=== PATIENT | male | born 1985 | race Caucasian/White ===

== ENCOUNTER 2017-06-28 11:48 | Emergency (ER) | payer SELFPAY ==
[2017-06-28 12:06] VITALS: BP 152/95
--- NOTE | 2017-06-28 13:34 | EDM.PDOCBH ---
ED HPI GENERAL MEDICAL PROBLEM - General Chief Complaint: Behavioral/Psych Stated Complaint: Medical evaluation for depression Time Seen by Provider: 06/28/17 12:45 Source of Information: Reports: Patient, Family, RN Notes Reviewed History Limitations: Reports: No Limitations - History of Present Illness INITIAL COMMENTS - FREE TEXT/NARRATIVE: 31 year old male is brought to the ED by law enforcement after a wellness call by the patient's Mom. The patient says he's not sure why he's here. He says he didn't witness the phone call. He denies suicidal or homicidal ideation. He denies substance abuse. He answers yes and no questions but otherwise does not elaborate. He says he's eating. He has a job but hasn't worked for a few weeks. I spoke to the officer who brought him in. He felt the patient appears paranoid because he would look around a lot and seemed uneasy. He made no alarming comments to the officer. The patient is not under arrest. I called and spoke to the patient's Mom since she was the one requesting he be medically evaluated. The patient's Mom reports that Lionel has been living with them for approximately 3 months. Mom (Cari) feels that he is severely depressed. She reports that Lionel does not leave the basement. He sleeps throughout the day and is awake at night. They said that he eats at night. They only know this because they find empty containers of food. Cari has end stage COPD and is unable to go downstairs and check on Lionel because she is on oxygen and does not tolerate going up and down stairs. She says that Lionel sleeps in a dark corner of the basement. She says he is unmotivated and disinterested. He had a job but hasn't worked since April. She says he's turned his cell phone off. She denies noticing any paranoia, hallucinations, or psychotic behavior. He has no history of mental health disorders. 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 Cari states "he hasn't been the same since. He never snapped back." Cari confidentally reports that Lionel is not using drugs or alcohol. He is on no medications. He is going through medical bankruptcy. Mom says he is losing weight and won't change his clothes. He's grown a long, unkept jaime which is abnormal for him. Mom denies any concerns of suicidal or homicidal ideation. Mom feels the patient needs to be admitted but she does not want him to go to the [facility]. - Related Data Allergies Allergy/AdvReac Type Severity Reaction Status Date / Time No Known Allergies Allergy Verified 06/28/17 12:03 Home Meds: Home Meds . [No Known Home Meds] 06/28/17 [History] Past Medical History - Past Health History Medical/Surgical History: Denies Medical/Surgical History Social & Family History - Tobacco Use Smoking Status *Q: Unknown Ever Smoked - Recreational Drug Use Recreational Drug Use: Yes Drug Use in Last 12 Months: No ED ROS GENERAL - Review of Systems Review Of Systems: ROS reveals no pertinent complaints other than HPI. (Patient does not offer any addtional information.) ED EXAM, BEHAVIORAL HEALTH - Physical Exam Exam: See Below Exam Limited By: Other (Withdrawn) General Appearance: Alert, No Apparent Distress, Thin Eye Exam: Bilateral Eye: EOMI, PERRL Respiratory/Chest: No Respiratory Distress, Lungs Clear, Normal Breath Sounds, No Accessory Muscle Use, Chest Non-Tender Cardiovascular: Normal Peripheral Pulses, Regular Rate, Rhythm, No Murmur GI/Abdominal: Normal Bowel Sounds, Soft, Non-Tender Neurological: Alert, Normal Gait, No Motor/Sensory Deficits, Oriented x 3, Other (Cerebellar testing intact ) Psychiatric: Alert, Flat Affect, Withdrawn, Other (Patient is calm and cooperative but appears withdrawn. He answers questions appropriately but with short yes/no responses. He denies suicidal or homicidal ideation. He denies drug use. He doesn't know why he's here. He doesn't feel his behavior is a problem.). No: Homicidal Thoughts, Phobic, Suicidal Plan, Suicidal Thoughts, Auditory Hallucinations, Visual Hallucinations, Grandiose Thoughts, Paranoid Thoughts, Threatening Behavior COURSE, BEHAVIORAL HEALTH COMP - Course Vital Signs: Last Vital Signs Temp 98.4 F 06/28/17 12:03 Pulse 118 H 06/28/17 12:03 Resp 16 06/28/17 12:03 BP 152/95 H 06/28/17 12:03 Pulse Ox 99 06/28/17 12:03 Orders, Labs, Meds: Laboratory Tests 06/28/17 06/28/17 06/28/17 Range/Units 12:55 12:55 13:10 WBC 5.76 (4.23-9.07) K/mm3 RBC 5.29 (4.63-6.08) M/mm3 Hgb 16.6 (13.7-17.5) gm/L Hct 46.8 (40.1-51.0) % MCV 88.5 (79.0-92.2) fl MCH 31.4 (25.7-32.2) pg MCHC 35.5 (32.2-35.5) g/dl RDW Std Deviation 38.3 (35.1-43.9) fL Plt Count 300 (163-337) K/mm3 MPV 10.8 (9.4-12.3) fl Neut % (Auto) 72.3 H (34.0-67.9) % Lymph % (Auto) 20.7 L (21.8-53.1) % [place] % (Auto) 5.6 (5.3-12.2) % Eos % (Auto) 0.9 (0.8-7.0) Baso % (Auto) 0.3 (0.1-1.2) % Neut # (Auto) 4.17 (1.78-5.38) K/mm3 Lymph # (Auto) 1.19 L (1.32-3.57) K/mm3 [place] # (Auto) 0.32 (0.30-0.82) K/mm3 Eos # (Auto) 0.05 (0.04-0.54) K/mm3 Baso # (Auto) 0.02 (0.01-0.08) K/mm3 Sodium 142 (136-145) mEq/L Potassium 4.2 (3.5-5.1) mEq/L Chloride 102 (98-107) mEq/L Carbon Dioxide 28 (21-32) mEq/L Anion Gap 16.2 H (5-15) BUN 15 (7-18) mg/dL Creatinine 1.4 H (0.7-1.3) mg/dL Est Cr Clr Drug Dosing 78.21 mL/min Estimated GFR (MDRD) 59 (>60) mL/min BUN/Creatinine Ratio 10.7 L (14-18) Glucose 99 (74-106) mg/dL Calcium 10.0 (8.5-10.1) mg/dL Total Bilirubin 2.2 H (0.2-1.0) mg/dL AST 33 (15-37) U/L ALT 19 (16-63) U/L Alkaline Phosphatase 54 (46-116) U/L Total Protein 8.0 (6.4-8.2) g/dl Albumin 4.9 (3.4-5.0) g/dl Globulin 3.1 gm/dL Albumin/Globulin Ratio 1.6 (1-2) TSH 3rd Generation 1.474 (0.358-3.74) uIU/mL Urine Color (Yellow) Urine Appearance (Clear) Urine pH (5.0-8.0) Ur Specific [place] (1.005-1.030) Urine Protein (Negative) Urine Glucose (UA) (Negative) Urine Ketones (Negative) Urine Occult Blood (Negative) Urine Nitrite (Negative) Urine Bilirubin (Negative) Urine Urobilinogen (0.2-1.0) Ur Leukocyte Esterase (Negative) Urine RBC (0-5) /hpf Urine WBC (0-5) /hpf Ur Epithelial Cells (0-5) /hpf Urine Bacteria (FEW) /hpf Urine Mucus (FEW) /hpf Urine Opiates Screen Negative (NEGATIVE) Ur Buprenorphine Scrn Negative (NEGATIVE) Ur Oxycodone Screen Negative (NEGATIVE) Urine Methadone Screen Negative (NEGATIVE) Ur Propoxyphene Screen Negative (NEGATIVE) Ur Barbiturates Screen Negative (NEGATIVE) Ur Tricyclics Screen Negative (NEGATIVE) Ur Phencyclidine Scrn Negative (NEGATIVE) Ur Amphetamine Screen Negative (NEGATIVE) U Methamphetamines Scrn Negative (NEGATIVE) U Benzodiazepines Scrn Negative (NEGATIVE) U Cocaine Metab Screen Negative (NEGATIVE) U Marijuana (THC) Screen Negative (NEGATIVE) Ethyl Alcohol 0.00 (0.00) gm% 06/28/17 Range/Units 13:10 WBC (4.23-9.07) K/mm3 RBC (4.63-6.08) M/mm3 Hgb (13.7-17.5) gm/L Hct (40.1-51.0) % MCV (79.0-92.2) fl MCH (25.7-32.2) pg MCHC (32.2-35.5) g/dl RDW Std Deviation (35.1-43.9) fL Plt Count (163-337) K/mm3 MPV (9.4-12.3) fl Neut % (Auto) (34.0-67.9) % Lymph % (Auto) (21.8-53.1) % [place] % (Auto) (5.3-12.2) % Eos % (Auto) (0.8-7.0) Baso % (Auto) (0.1-1.2) % Neut # (Auto) (1.78-5.38) K/mm3 Lymph # (Auto) (1.32-3.57) K/mm3 [place] # (Auto) (0.30-0.82) K/mm3 Eos # (Auto) (0.04-0.54) K/mm3 Baso # (Auto) (0.01-0.08) K/mm3 Sodium (136-145) mEq/L Potassium (3.5-5.1) mEq/L Chloride (98-107) mEq/L Carbon Dioxide (21-32) mEq/L Anion Gap (5-15) BUN (7-18) mg/dL Creatinine (0.7-1.3) mg/dL Est Cr Clr Drug Dosing mL/min Estimated GFR (MDRD) (>60) mL/min BUN/Creatinine Ratio (14-18) Glucose (74-106) mg/dL Calcium (8.5-10.1) mg/dL Total Bilirubin (0.2-1.0) mg/dL AST (15-37) U/L ALT (16-63) U/L Alkaline Phosphatase (46-116) U/L Total Protein (6.4-8.2) g/dl Albumin (3.4-5.0) g/dl Globulin gm/dL Albumin/Globulin Ratio (1-2) TSH 3rd Generation (0.358-3.74) uIU/mL Urine Color Yellow (Yellow) Urine Appearance Clear (Clear) Urine pH 5.5 (5.0-8.0) Ur Specific [place] > or = 1.030 (1.005-1.030) Urine Protein Negative (Negative) Urine Glucose (UA) Negative (Negative) Urine Ketones 1+ H (Negative) Urine Occult Blood Negative (Negative) Urine Nitrite Negative (Negative) Urine Bilirubin 1+ H (Negative) Urine Urobilinogen 4.0 H (0.2-1.0) Ur Leukocyte Esterase Negative (Negative) Urine RBC 0-5 (0-5) /hpf Urine WBC 0-5 (0-5) /hpf Ur Epithelial Cells Not seen (0-5) /hpf Urine Bacteria Not seen (FEW) /hpf Urine Mucus Many H (FEW) /hpf Urine Opiates Screen (NEGATIVE) Ur Buprenorphine Scrn (NEGATIVE) Ur Oxycodone Screen (NEGATIVE) Urine Methadone Screen (NEGATIVE) Ur Propoxyphene Screen (NEGATIVE) Ur Barbiturates Screen (NEGATIVE) Ur Tricyclics Screen (NEGATIVE) Ur Phencyclidine Scrn (NEGATIVE) Ur Amphetamine Screen (NEGATIVE) U Methamphetamines Scrn (NEGATIVE) U Benzodiazepines Scrn (NEGATIVE) U Cocaine Metab Screen (NEGATIVE) U Marijuana (THC) Screen (NEGATIVE) Ethyl Alcohol (0.00) gm% Re-Assessment/Re-Exam: CBC is normal. CMP reveals normal sodium and potassium. Anion gap is mildly elevated with a normal bicarb. Creatinine is 1.4, BUN 15. Bilirubin is mildly elevated at 2.2 with normal LFTs. UA is negative for infection. UDS and ETOH is negative. The patient is calm and cooperative. He is not showing any outward signs of psychosis but I suspect that he has underlying, undiagnosed mental illness and feel he would benefit from inpatient admission. I spoke to Dr. Segura, Psychiatrist [employer] retailer sales consultant at [facility], regarding this patient. Since the patient is not a threat to himself or others, she recommends that he come voluntarily. If the patient refuses, she recommends that the family to go the states program support specialist 's office and file committal paperwork if needed. I spoke to the patient and he adamantly refuses transfer and admission to [facility]. He does not feel he needs inpatient treatment. He continues to not understand why he is here or what his mother's concerns are. Lionel did give me permission to speak to his Mom about his care. I attempted to phone the patient's mother several times but was unable to reach her. She did call back later and I was able to speak with her regarding the Psychiatry recommendations. I strongly encouraged them to file paperwork in order to get Lionel the help he needs. She agreed and said she will talk to her . I again feel the patient has underlying mental illness and feel he would benefit from inpatient admission, however he does not meet criteria for involuntary committal at this point. I encouraged Lionel to return if he has any thoughts of harming himself or others, or if he were to change his mind and agree to go to voluntarily to [facility]. They were given contact info for [facility]. Departure - Departure Time of Disposition: 14:20 Disposition: Home, Self-Care 01 Condition: Fair Clinical Impression: Depression Qualifiers: Depression Type: unspecified Qualified Code(s): F32.9 - Major depressive disorder, single episode, unspecified - Discharge Information Referrals: PCP,None [Primary Care Provider] - Forms: ED Department Discharge Additional Instructions: Return to ER if you develop any thoughts of hurting yourself or others I recommend you follow-up with your primary care provider [facility] due to depressive symptoms If you do not have a primary care provider, you can establish care with one of our family practice providers. We have same and next day appointments available. Call [phone] schedule. You can also follow-up with [facility] here in town. Call [phone] to schedule with them.
== END 2017-06-28 14:35 | disposition home or self-care (01) ==
LOC: JD.ED 11:48
DX: F32.9 Major depressive disorder, single episode, unspecified (principal)
CPT/HCPCS: 36415; 80053; 80306; 81001; 84443; 85025; 99283; G0480

== ENCOUNTER 2021-01-14 13:46 | Emergency (ER) | payer MEDICAID ==
[2021-01-14 14:02] VITALS: BP 137/75; PULSE 79
--- NOTE | 2021-01-14 14:48 | EDM.PDOCBH ---
ED HPI GENERAL MEDICAL PROBLEM - General Chief Complaint: Behavioral/Psych Stated Complaint: MENTAL HEALTH COMMITTAL Time Seen by Provider: 01/14/21 14:00 Source of Information: Reports: Patient, Police, RN Notes Reviewed, Other (Committal paperwork) History Limitations: Reports: Uncooperative - History of Present Illness INITIAL COMMENTS - FREE TEXT/NARRATIVE: Patient is a 35-year-old male brought into the emergency department by [facility] for medical clearance and placement with a court ordered committal already in place. Committal paperwork details the patient has a history of drug and alcohol abuse which has created mental illness in him. He has been banging his head on the wall and putting holes in the sheet rock as well as standing on unstable chairs. Patient is unable to offer much in the form of history. He says that he has hit his head on the wall at a couple times ", but does not know why he does it. He is denies any homicidal suicidal idea tion. Denies any drug or alcohol abuse. He does not think that he has ever been formally diagnosed with a psychiatric disorder. He denies any previous psychiatric hospitalizations. - Related Data Allergies Allergy/AdvReac Type Severity Reaction Status Date / Time No Known Allergies Allergy Verified 01/14/21 14:02 Home Meds: Home Meds . [No Known Home Meds] 06/28/17 [History] Past Medical History - Past Health History Medical/Surgical History: Denies Medical/Surgical History - Infectious Disease History Infectious Disease History: Reports: Chicken Pox Social & Family History - Family History Family Medical History: No Pertinent Family History - Tobacco Use Tobacco Use Status *Q: Never Tobacco User - Caffeine Use Caffeine Use: Reports: None - Recreational Drug Use Recreational Drug Use: Yes ED ROS GENERAL - Review of Systems Review Of Systems: See Below Constitutional: Reports: No Symptoms HEENT: Reports: No Symptoms Respiratory: Reports: No Symptoms Cardiovascular: Reports: No Symptoms Endocrine: Reports: No Symptoms GI/Abdominal: Reports: No Symptoms : Reports: No Symptoms Musculoskeletal: Reports: No Symptoms Skin: Reports: No Symptoms Neurological: Reports: No Symptoms Psychiatric: Reports: Other (self harm ) Hematologic/Lymphatic: Reports: No Symptoms Immunologic: Reports: No Symptoms ED EXAM, BEHAVIORAL HEALTH - Physical Exam Exam: See Below Exam Limited By: No Limitations General Appearance: Alert, WD/WN, No Apparent Distress Head: Atraumatic, Normocephalic Respiratory/Chest: No Respiratory Distress, Lungs Clear, Normal Breath Sounds, No Accessory Muscle Use, Chest Non-Tender Cardiovascular: Normal Peripheral Pulses, Regular Rate, Rhythm, No Edema, No Gallop, No JVD, No Murmur, No Rub GI/Abdominal: Normal Bowel Sounds, Soft, Non-Tender, No Organomegaly, No Distention, No Abnormal Bruit, No Mass Neurological: Alert, CN II-XII Intact, Normal Gait, Normal Reflexes, No Motor/Sensory Deficits, Oriented x 3 Psychiatric: Alert, Flat Affect, Inattentive, Poor Eye Contact, Other (poor communication, inappropriate responses to questions. Inappropriate laughing.) Skin Exam: Warm, Dry, Intact, Normal color, No rash COURSE, BEHAVIORAL HEALTH COMP - Course Vital Signs: Last Vital Signs Temp 98.1 F 01/14/21 13:59 Pulse 79 01/14/21 13:59 Resp 16 01/14/21 13:59 BP 137/75 01/14/21 13:59 Pulse Ox 100 01/14/21 13:59 Orders, Labs, Meds: Laboratory Tests 01/14/21 01/14/21 01/14/21 Range/Units 14:30 14:30 14:30 WBC 7.65 (4.23-9.07) K/mm3 RBC 4.90 (4.63-6.08) M/mm3 Hgb 15.4 (13.7-17.5) gm/dl Hct 46.4 (40.1-51.0) % MCV 94.7 H D (79.0-92.2) fl MCH 31.4 (25.7-32.2) pg MCHC 33.2 (32.2-35.5) g/dl RDW Std Deviation 43.3 (35.1-43.9) fL Plt Count 261 (163-337) K/mm3 MPV 11.3 (9.4-12.3) fl Neutrophils % (Manual) 68 H (40-60) % Band Neutrophils % 0 (0-10) % Lymphocytes % (Manual) 26 (20-40) % Atypical Lymphs % 0 % Monocytes % (Manual) 5 (2-10) % Eosinophils % (Manual) 1 (0.8-7.0) % Basophils % (Manual) 0 L (0.2-1.2) Platelet Estimate Adequate RBC Morph Comment Normal Sodium 145 (136-145) mEq/L Potassium 3.7 (3.5-5.1) mEq/L Chloride 105 (98-107) mEq/L Carbon Dioxide 29 (21-32) mEq/L Anion Gap 14.7 (5-15) BUN 8 (7-18) mg/dL Creatinine 1.1 (0.7-1.3) mg/dL Est Cr Clr Drug Dosing 92.56 mL/min Estimated GFR (MDRD) > 60 (>60) mL/min BUN/Creatinine Ratio 7.3 L (14-18) Glucose 89 (74-106) mg/dL Calcium 9.4 (8.5-10.1) mg/dL Total Bilirubin 1.6 H (0.2-1.0) mg/dL AST 17 (15-37) U/L ALT 21 (16-63) U/L Alkaline Phosphatase 78 (46-116) U/L Total Protein 8.1 (6.4-8.2) g/dl Albumin 4.8 (3.4-5.0) g/dl Globulin 3.3 gm/dL Albumin/Globulin Ratio 1.5 (1-2) TSH 3rd Generation 3.117 (0.358-3.74) uIU/mL Salicylates < 0.2 L (2.8-20) mg/dL Urine Opiates Screen (ZVGXGP=227) Ur Buprenorphine Scrn (CUTOFF=10) Ur Oxycodone Screen (VCY7XB=952) Urine Methadone Screen (ZQB2OA=520) Ur Propoxyphene Screen (UVXPXI=884) Acetaminophen 0 L (10-30) ug/mL Ur Barbiturates Screen (NVLWZI=676) Ur Tricyclics Screen (XKACJH=936) Ur Phencyclidine Scrn (CUTOFF=25) Ur Amphetamine Screen (UNRFRO=180) U Methamphetamines Scrn (LWPZKC=064) U Benzodiazepines Scrn (WGGJAM=602) U Cocaine Metab Screen (LFJWQK=659) U Marijuana (THC) Screen (CUTOFF=50) Ethyl Alcohol 0.00 (0.00) gm% RPR (NONREACTIVE) HIV-1 Ab Rapid Screen (NEGATIVE) SARS-CoV-2 RNA (COOPER) (NEGATIVE) 01/14/21 01/14/21 01/14/21 Range/Units 14:30 14:30 14:48 WBC (4.23-9.07) K/mm3 RBC (4.63-6.08) M/mm3 Hgb (13.7-17.5) gm/dl Hct (40.1-51.0) % MCV (79.0-92.2) fl MCH (25.7-32.2) pg MCHC (32.2-35.5) g/dl RDW Std Deviation (35.1-43.9) fL Plt Count (163-337) K/mm3 MPV (9.4-12.3) fl Neutrophils % (Manual) (40-60) % Band Neutrophils % (0-10) % Lymphocytes % (Manual) (20-40) % Atypical Lymphs % % Monocytes % (Manual) (2-10) % Eosinophils % (Manual) (0.8-7.0) % Basophils % (Manual) (0.2-1.2) Platelet Estimate RBC Morph Comment Sodium (136-145) mEq/L Potassium (3.5-5.1) mEq/L Chloride (98-107) mEq/L Carbon Dioxide (21-32) mEq/L Anion Gap (5-15) BUN (7-18) mg/dL Creatinine (0.7-1.3) mg/dL Est Cr Clr Drug Dosing mL/min Estimated GFR (MDRD) (>60) mL/min BUN/Creatinine Ratio (14-18) Glucose (74-106) mg/dL Calcium (8.5-10.1) mg/dL Total Bilirubin (0.2-1.0) mg/dL AST (15-37) U/L ALT (16-63) U/L Alkaline Phosphatase (46-116) U/L Total Protein (6.4-8.2) g/dl Albumin (3.4-5.0) g/dl Globulin gm/dL Albumin/Globulin Ratio (1-2) TSH 3rd Generation (0.358-3.74) uIU/mL Salicylates (2.8-20) mg/dL Urine Opiates Screen Negative (WQEYML=498) Ur Buprenorphine Scrn Negative (CUTOFF=10) Ur Oxycodone Screen Negative (RIA5SQ=803) Urine Methadone Screen Negative (YWW1UF=692) Ur Propoxyphene Screen Negative (DPASXI=312) Acetaminophen (10-30) ug/mL Ur Barbiturates Screen Negative (EIYAWZ=667) Ur Tricyclics Screen Negative (URNPTE=858) Ur Phencyclidine Scrn Negative (CUTOFF=25) Ur Amphetamine Screen Negative (YSRVUR=979) U Methamphetamines Scrn Negative (IGWDRW=994) U Benzodiazepines Scrn Negative (IBNTRF=752) U Cocaine Metab Screen Negative (NGOYWC=223) U Marijuana (THC) Screen Negative (CUTOFF=50) Ethyl Alcohol (0.00) gm% RPR Non-reactive (NONREACTIVE) HIV-1 Ab Rapid Screen Negative (NEGATIVE) SARS-CoV-2 RNA (COOPER) (NEGATIVE) 01/14/21 Range/Units 15:30 WBC (4.23-9.07) K/mm3 RBC (4.63-6.08) M/mm3 Hgb (13.7-17.5) gm/dl Hct (40.1-51.0) % MCV (79.0-92.2) fl MCH (25.7-32.2) pg MCHC (32.2-35.5) g/dl RDW Std Deviation (35.1-43.9) fL Plt Count (163-337) K/mm3 MPV (9.4-12.3) fl Neutrophils % (Manual) (40-60) % Band Neutrophils % (0-10) % Lymphocytes % (Manual) (20-40) % Atypical Lymphs % % Monocytes % (Manual) (2-10) % Eosinophils % (Manual) (0.8-7.0) % Basophils % (Manual) (0.2-1.2) Platelet Estimate RBC Morph Comment Sodium (136-145) mEq/L Potassium (3.5-5.1) mEq/L Chloride (98-107) mEq/L Carbon Dioxide (21-32) mEq/L Anion Gap (5-15) BUN (7-18) mg/dL Creatinine (0.7-1.3) mg/dL Est Cr Clr Drug Dosing mL/min Estimated GFR (MDRD) (>60) mL/min BUN/Creatinine Ratio (14-18) Glucose (74-106) mg/dL Calcium (8.5-10.1) mg/dL Total Bilirubin (0.2-1.0) mg/dL AST (15-37) U/L ALT (16-63) U/L Alkaline Phosphatase (46-116) U/L Total Protein (6.4-8.2) g/dl Albumin (3.4-5.0) g/dl Globulin gm/dL Albumin/Globulin Ratio (1-2) TSH 3rd Generation (0.358-3.74) uIU/mL Salicylates (2.8-20) mg/dL Urine Opiates Screen (KLKPMO=852) Ur Buprenorphine Scrn (CUTOFF=10) Ur Oxycodone Screen (UPA0BR=097) Urine Methadone Screen (DGA0KB=400) Ur Propoxyphene Screen (TXNNYV=666) Acetaminophen (10-30) ug/mL Ur Barbiturates Screen (PXRAYZ=391) Ur Tricyclics Screen (FQPHDK=585) Ur Phencyclidine Scrn (CUTOFF=25) Ur Amphetamine Screen (FPOHFV=646) U Methamphetamines Scrn (WRFGYD=977) U Benzodiazepines Scrn (TNGGFL=424) U Cocaine Metab Screen (RCZFIG=101) U Marijuana (THC) Screen (CUTOFF=50) Ethyl Alcohol (0.00) gm% RPR (NONREACTIVE) HIV-1 Ab Rapid Screen (NEGATIVE) SARS-CoV-2 RNA (COOPER) Negative (NEGATIVE) Discharge vs Psych Eval/Treatment:: Patient is a 35-year-old male brought into the emergency department by [facility] on an emergency treatment order due to patient eating his head against the wall, breaking sheet rock, and standing and unsteady chairs. Patient is a very poor historian. He is very delayed when answering questions, although for the most part he does answer them appropriately. He will occasionally laugh for no reason but is unable to identify what is funny. He repeats thank you frequently. He does deny any drug or alcohol use. Denies any suicidal ideation. I have ordered a medical work-up for psychiatric clearance. I will have social work come visit with the patient to begin looking for a facility for placement. 01/14/21 17:41 Patient's work-up was grossly unremarkable. Head CT showed no acute abnormalities. Drug screen and alcohol are negative. Covid is negative. Spoke with psychiatrist, Dr. Santa at [facility] in [place]. He has accepted the patient for admission. He did requested an HIV and RPR be added to his blood draw. Patient will go by [facility]. 01/15/21 13:50 Spoke with Joselito, on-call nurse at [facility]. He was updated on negative RPR and HIV. He verbalized that he will update the physician. Departure - Departure Time of Disposition: 17:41 Disposition: DC/Tfer to Psych Hosp/Unit 65 Condition: Good Clinical Impression: Medical clearance for psychiatric admission - Discharge Information Referrals: PCP,None [Primary Care Provider] - Forms: ED Department Discharge Sepsis Event Note (ED) - Evaluation Sepsis Screening Result: No Definite Risk
[2021-01-14 15:15] LABS: ACETAMINOPHEN 0 ug/mL (10-30)
--- NOTE | 2021-01-14 16:53 | CT ---
Head CT Technique: Multiple axial sections through the brain were obtained. Intravenous contrast was not utilized. Reconstructed coronal and sagittal images were obtained. Comparison: No prior intracranial imaging is available. Findings: Ventricles along with basal cisterns and sulci over the convexities are within normal limits for the patient's age. No abnormal parenchymal densities are seen. No evidence of intracranial hemorrhage. No midline shift or mass-effect is appreciated. Bone window settings were reviewed. Visualized mastoid sinuses and paranasal sinuses show nothing acute. No acute calvarial abnormality is appreciated. Impression: 1. Nothing acute is appreciated on noncontrast head CT exam. Diagnostic code #1
== END 2021-01-14 18:20 ==
LOC: JD.ED 13:46
DX: Z00.8 Encounter for other general examination (principal); Z20.822 Contact with and (suspected) exposure to COVID-19
CPT/HCPCS: 36415; 70450; 70450-26; 80053; 80143; 80179; 80306; 80307; 84443; 85007; 85027; 86592; 93005; 99283; 99285-25; G0433; U0002